=== PATIENT | male | born 1995 | race Asian ===

== ENCOUNTER 2018-11-30 14:14 | Inpatient (IN) ==
--- NOTE | 2018-11-30 14:47 | Emergency Department Note ---
Entered by Yessi Sutton acting as a scribe for Brandt Del Rosario MD History of Present Illness General Chief complaint: Mental Health Evaluation Stated complaint: LAC TO L ARM Time Seen by Provider: 11/30/18 14:28 History of Present Illness Maximum Pain Intensity: 4 Past Med/Surg History Social History Feels Safe at Home: Yes Smoking Status: Current every day smoker Physical Exam Vital Signs Vital Signs - 24 hr 11/30/18 14:23 Temperature 99.1 F Temperature Source Oral Sepsis Recent Fever Within 48 Hours No Sepsis New/Unexplained Change in Mental Status No Sepsis Action Taken by Nursing No Action Required Pulse Rate 72 Respiratory Rate 18 Respiratory Effort / Characteristics Non-Labored Spontaneous Respiratory Depth Normal Blood Pressure 134/85 Blood Pressure Mean 101 Pulse Oximetry 100 Oxygen Delivery Method Room Air Discharge Plan Visit Data Chief Complaint: Mental Health Evaluation Stated Complaint: LAC TO L ARM ED Provider: Brandt Del Rosario
[2018-11-30 15:10] LABS: Appearance Urine Clear (Clear); Bilirubin Urine Negative (Negative); Blood Urine Negative (Negative); Color Urine Yellow; Glucose Urine UA Negative (Negative); Ketones Urine Negative (Negative); Leukocyte Esterase Urine Negative (Negative); Nitrite Urine Negative (Negative); Protein Urine Negative (Negative); Specific Gravity Urine 1.019 (1.000-1.030); Urobilinogen Urine Negative (Negative); pH Urine 5.5 (4.5-7.5)
[2018-11-30 15:33] LABS: Basophils # (auto) 0.05 K/uL (0-0.2); Basophils % (auto) 0.7 %; Eosinophils # (auto) 0.07 K/uL (0-0.5); Hematocrit (blood only) 43.9 % (42-52); Hemoglobin 15.4 g/dL (14.0-18.0); Immature Granulocytes # (auto) 0.01 K/uL (0.00-0.02); Immature Granulocytes % (auto) 0.1 %; Lymphocytes # (auto) 1.83 K/uL (1.2-3.4); Lymphocytes % (auto) 26.3 %; Mean Corpuscular Hemoglobin 31.2 pg (25-34); Mean Corpuscular Hgb Conc 35.1 g/dL (32-36); Mean Platelet Volume 10.5 fL (7.4-10.4); Monocytes # (auto) 0.34 K/uL (0.11-0.59); Monocytes % (auto) 4.9 %; Neutrophils # (auto) 4.65 K/uL (1.4-6.5); Platelet Count 240 K/uL (130-400); RDW Coefficient of Variation 12.9 % (11.5-14.5); RDW Standard Deviation 41.6 fL (36.4-46.3); Red Blood Count 4.93 M/uL (4.7-6.1); White Blood Count 6.95 K/uL (4.8-10.8)
[2018-11-30 15:55] LABS: Amphetamines+Metham, Urine Neg (Neg); Barbiturates, Urine Neg (Neg); Benzodiazepine, Urine Neg (Neg); Cocaine, Urine Neg (Neg); MDMA (Ecstacy), Urine Neg (Neg); Methadone, Urine Neg (Neg); Opiate, Urine Neg (Neg); Phencyclidine, Urine Neg (Neg)
[2018-11-30 16:14] LABS: Albumin Level 4.5 gm/dl (3.4-5.0); BUN Creatinine Ratio 15.3 (10-20); Calcium 8.7 mg/dl (8.5-10.1); Creatinine Clr Calc Pharmacy 134.4 ml/min; Est GFR (Non-African American) 121.7; Potassium 3.8 mmol/L (3.5-5.1)
[2018-11-30 16:25] LABS: Albumin Globulin Ratio 1.4 (0.9-2); Bilirubin,Total 0.8 mg/dl (0.2-1); Globulin 3.3 gm/dl (2.5-4.0); Thyroid Stimulating Hormone 3.19 uIu/ml (0.300-4.500); Total Protein 7.8 gm/dl (6.4-8.2)
[2018-11-30 16:32] LABS: Acetaminophen < 2 ug/ml (10-30); Salicylate < 1.7 mg/dl (2.8-20)
[2018-11-30] MEDS ORDERED: NICOTINE 21 MG/24 HR TDSY TD STA (17:08)
[2018-11-30] MEDS ORDERED: XYLOCAINE 1%/SOD BICARB 20 ML VIAL ONE (18:35)
[2018-11-30] MEDS ORDERED: LIDO/EPINEPHRINE/SOD BICARB 20 ML VIAL ONE (18:38)
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
[2018-11-30] MEDS ORDERED: MAGNESIUM HYDROXIDE SUSP 30 ML UDC PO PRN (19:34)
[2018-11-30] MEDS ORDERED: BISMUTH SUBSALICYLATE PER ML OMNICELL CHARGE PO PRN (19:34)
[2018-11-30] MEDS ORDERED: SODIUM CHLORIDE 0.65% NA SOLN 45 ML (OCEAN) PRN (19:34)
[2018-11-30] MEDS ORDERED: ACETAMINOPHEN 325 MG TAB PO PRN (19:34)
[2018-11-30] MEDS ORDERED: ALUMINUM/MAGNESIUM SUSP 30 ML UDC PO PRN (19:34)
[2018-11-30] MEDS ORDERED: NICOTINE 21 MG/24 HR TDSY TD SCH (22:00)
[2018-12-01] MEDS: NICOTINE 21 MG/24 HR TDSY TD SCH (09:40)
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
[2018-12-01] MEDS: ESCITALOPRAM OXALATE 10 MG TAB PO SCH (15:24)
[2018-12-02] MEDS: ESCITALOPRAM OXALATE 10 MG TAB PO SCH (08:59)
[2018-12-02] MEDS: NICOTINE 21 MG/24 HR TDSY TD SCH (09:02)
--- NOTE | 2018-12-02 16:43 | Psychiatric Progress Note ---
Date of Service December 02, 2018 Impression / Recommendations Impression 23-year-old male with history of disordered eating, self-reported history of body dysmorphia, depression, and anxiety. He has demonstrated impulse dyscontrol when emotionally overwhelmed utilizing maladaptive coping strategies of binging and superficial cutting to cope and likely also to punish himself and his parents for his unhappiness. At a basic level he wants to be loved and reassured. He demonstrates fair insight but a great deal of negative cognitive distortions. He would likely benefit from a serotonin based antidepressant for mood, anxiety, and impulse dyscontrol. He would also likely benefit from a stable relationship with a therapist. (1) Depression: 12/01/2018 -Patient admitted on voluntary status to behavioral health unit. He will be maintained on suicide precautions. He will participate in unit programming as appropriate -Patient denying suicidal ideation at time of admission -He will start Lexapro 10 mg p.o. daily following discussion of risks, benefits, and alternative treatment options 12/02/2018 -Patient doing well on the unit with improving mood and hopefulness. In absence of ongoing suicidal ideation, can consider discharge Monday if clinically appropriate at that time -Prior to discharge patient to fill out medical assistance application as he is without health insurance and expressing concern about potential cost associated with hospitalization -Tolerating Lexapro well so far. This agent should be affordable for him in absence of insurance -Patient requested sedative hypnotic trial to help with sleep pattern maintenance. He has taken likely several different benzodiazepine and novel benzodiazepine agents in the past however, after discussion of risks associated with those types of medicines including habituation, he was amenable to a trazodone trial and will start 25 mg p.o. nightly tonight as trial. Common risks and benefits reviewed including risk of priapism and potential but unlikely drug drug interaction with Lexapro -Patient was encouraged to follow through with plans to have a family meeting via phone with his mother and sister prior to discharge (2) Laceration of left upper extremity: 12/01/2018 -4 cm laceration to left forearm sutured in ER 12/02/2018 -Bandage warm and dry -Requested nursing look into need/timing for suture removal (3) Generalized anxiety disorder: 12/01/2018 -Long-standing excessive worry with panic-like symptoms not rising to the level of panic attacks -Start Lexapro trial as above -Cognitive behavioral therapy for alternative coping strategies will be important 12/02/18 -continue lexapro as above (4) Eating disorder, unspecified: 12/01/2018 -Patient reports a history of BDD, preoccupation with weight, self-induced vomiting, and caloric restriction. Unhealthy relationship with food long- standing and possibly explainable in part by his history of being bullied for his body habitus as a child when he was already feeling vulnerable at home, while remaining a source of guilty pleasures and something that he can control -Moderation of diet and avoiding unhealthy compensatory strategies will be encouraged 12/02/18 - reviewed role of CBT and outpatient therapy advised (5) Nicotine dependence: 12/01/2018 -Brief smoking cessation counseling provided exceeded 5 minutes. Long-term risks and strategies for smoking cessation reviewed. Patient was accepting of information. Inventory Assets Strengths: Help seeking, able to introspect Needs: Pharmacotherapy, outpatient supports Risk Factors Assessment Male: Yes : No Do You Have Access To A Gun?: No Health Problems: No Mental Health Diagnoses: Yes Substance Use Disorders: Yes Family History of Suicide: No Previous Psychiatric Hospitalization: No Hopelessness: No Smoker: Yes Protective Factors Assessment : No Responsible for Young Children: No Employed: Yes ("I work on campus") Interval History Chief Complaint "A lot better" Review of Systems Notes Denies constitutional symptoms. Denies pain. Denies GI symptoms. Sleep Information Total Hours of Sleep: 5 Meal Information Percent Meal Consumed - Breakfast: 100 Percent Meal Consumed - Lunch: 100 Percent Meal Consumed - Dinner: 90 Subjective Subjective Patient was seen & assessed and interval progress reviewed with treatment team. Patient appears to be doing well on the unit. Reviewed 72-hour notice will be up at 2049 on Monday. Patient denying suicidal ideation. We plan to pursue medical assistance application hopefully to help cover cost of hospitalization prior to his discharge. Working to schedule family meeting via phone with sister and mother. On interview patient describes feeling "a lot better" today. He expresses gratitude for the help he is receiving. He believes some of his recent lifestyle choices have been contributing to his depression including irregular sleep patterns and isolation. We reviewed, in setting of a history of depression, the importance of regular sleep overnight and considered means to remain active during the day. He appreciates the benefit from the structure of the hospital environment. He describes his mood this morning is "calm." Feeling more hopeful, more energetic, more interested. Denies active self- injurious impulses or suicidal ideation. Physical Exam Psychiatric Orientation: alert, oriented x 3 and cooperative Apperance: appropriately dressed, appropriately groomed and appeared stated age Eye Contact: good eye contact Motor Behavior: steady gait and station Speech: normal rate/rhythm/volume of speech Affect: euthymic affect Calm Thought Process: goal directed thought process and clear/coherent thought process Thought Content: no delusions and no hopelessness Suicidal Thoughts: denies suicidal thoughts, denies suicidal plan and denies suicidal intent Homicidal Thoughts: denies homicidal thoughts Hallucinations: no auditory hallucinations and no visual hallucinations Cognition: recent memory grossly intact and attention grossly intact Estimated Intelligence: average estimated intelligence Insight: + fair insight Judgement: + fair judgement Vital Signs (Past 24 Hours) Last Vital Signs Temp 36.4 C L 12/02/18 06:53 Pulse 69 12/02/18 06:54 Resp 18 12/02/18 06:53 BP 107/66 12/02/18 06:54 Pulse Ox 98 11/30/18 20:00 Results & Data Current Inpatient Medications Current Inpatient Medications: Current Inpatient Medications Acetaminophen (Tylenol) 650 mg PO Q4H PRN PRN Reason: Headache or Minor Fever Stop: 12/30/18 19:33 Al Hydrox/Mg Hydrox/Simethicone (Maalox) 30 ml PO Q4H PRN PRN Reason: GI Upset Stop: 12/30/18 19:33 Bismuth Subsalicylate (Kaopectate) 15 ml PO PRN PRN PRN Reason: Loose Stool Stop: 12/30/18 19:33 Escitalopram Oxalate (Lexapro Tab) 10 mg PO QAM TAN Stop: 12/31/18 14:29 Last Admin: 12/02/18 08:59 Dose: 10 mg Documented by: Hydroxyzine HCl (Vistaril) 50 mg PO HSZ PRN PRN Reason: Insomnia Stop: 12/30/18 19:33 Hydroxyzine HCl (Vistaril) 25 mg PO Q4H PRN PRN Reason: Anxiety Stop: 12/30/18 19:33 Magnesium Hydroxide (Milk Of Magnesia) 30 ml PO DAILY PRN PRN Reason: Constipation Stop: 12/30/18 19:33 Miscellaneous (Remove Nicoderm Patch) 1 ea N/A HS TAN Stop: 12/30/18 20:59 Last Admin: 12/01/18 22:30 Dose: 1 ea Documented by: Nicotine (Nicoderm Cq) 21 mg TD QAM TAN Stop: 12/31/18 08:59 Last Admin: 12/02/18 09:02 Dose: 21 mg Documented by: Sodium Chloride ([place] Nasal) 1 - 2 sprays NA PRN PRN PRN Reason: Nasal Dryness/Congestion Stop: 12/30/18 19:33 Mental Health & Subst Abuse Tx Psychiatrist Name of Psychiatrist: JOHNNY Psychiatrist's Psychiatric Appointment Comment: [facility] Therapist Name of Therapist: [facility] Therapist's Therapy Appointment Comment: [facility] Surgical Processor Name of Surgical Processor: [facility] Phone Number for Surgical Processor: [phone] Case Management Appointment Comment: [address] [place] [address] Post Discharge Appointments Primary Care Physician Name Of Family Doctor: [facility] Primary Care Time of Appointment with PCP: Follow up as needed Provider Appointment Comment: [facility] Contact Information Discharge Discharge Address: [address] [place] [address] Willy, [facility], [place] [address] (1) Depression Depression Type: unspecified Qualified Code(s): F32.9 - Major depressive disorder, single episode, unspecified (2) Laceration of left upper extremity Encounter type: initial encounter Qualified Code(s): S41.112A - Laceration without foreign body of left upper arm, initial encounter
[2018-12-02] MEDS ORDERED: TRAZODONE HCL 50 MG TAB PO SCH (22:00)
[2018-12-03] MEDS: ESCITALOPRAM OXALATE 10 MG TAB PO SCH (08:30)
[2018-12-03] MEDS: NICOTINE 21 MG/24 HR TDSY TD SCH (08:30)
--- NOTE | 2018-12-03 11:08 | Discharge Summary ---
Date of Service December 03, 2018 History of Present Illness This patient, who goes by Obey, was admitted through the hospital ER last evening where he presented with self inflicted cut to his left arm requiring 4 sutures. In the ER he reported that he last cut himself several weeks ago. He reported feeling more sad and depressed recently but denied thoughts of hurting himself or anyone else or symptoms of psychosis. He noted a history of similar symptoms 2 years ago when he was treated for body dysmorphic disorder with counseling. Medical workup in the ER was otherwise benign and he was cleared for [facility] admission for further evaluation and treatment. On interview this morning, Obey describes a difficult childhood. His mother was somewhat unpredictable and emotional. He remembers her yelling and screaming, at times destructive. He recalls one instance of crying seated in the back of her car wh en he believed she was going to drive the car into water. He seems to perceive that his family is more focused on his accomplishments than his happiness. He has a girlfriend whom he talks to on the phone who lives in [facility] and is a source of some support. He also likes his roommates and reports that he does have some friends in town. He is able to appreciate a history of trying to prove to others how bad he feels and an attempt to recruit sympathy, attention, and support, however he acknowledges that his family typically responds negatively. This includes the cutting that he has been doing in several episodes in recent years. He always cuts superficially on his arms and denies that his intention has ever been to kill himself while cutting. He states that he does this to show his family and also likely to punish them. When he cut himself most recently this was possibly an attempt to get back at his girlfriend for not being available to him when he needed her. There have been times when he felt that the cutting was pleasurable briefly however at present he perceives that he is averse to be painful stimulus and would like to stop. Today he denies passive or active wish. No plan or intention for suicide or harm to anyone else endorsed. He describes a lot of negative thinking, tends to feel guilty, and worries excessively. Long-standing tendency to worry with o ccasional mild panic symptoms but not regular panic attacks. He denies symptoms that would be consistent with OCD. He denies psychosis or symptoms of simón. He acknowledges long-standing low mood states that tend to be persistent for long periods of time. Believes he has been treated with Wellbutrin with some success for mood in the past but admits he took more than prescribed hoping for improved effect but it made him shaky and he stopped that last in April 2018. He describes tearfulness, increased time spent in bed, decreased interest, motivation, and energy. He describes a mental image of himself as a child appearing vulnerable which makes him sad. He notes a history of binging to the point of feeling sick. "Food makes me feel safe." He has a history of chewing and spitting food and also a history of self-induced emesis 2 years ago due to concern for weight gain. He does not weigh himself at home but does sometimes restrict calories to offset binges. He denies abuse of laxatives or over exercising. He endorses a fear of gaining weight and notes a history of being bullied in school for being overweight as a younger child. He expresses concern about the cost of his hospitalization as he does not have medical insurance. Physical Exam Psychiatric Orientation: alert, oriented x 3 and cooperative Apperance: appropriately dressed, appropriately groomed and appeared stated age Eye Contact: good eye contact Motor Behavior: steady gait and station and + psychomotor agitation (bouncing legs up and down throughout assessment) Speech: normal rate/rhythm/volume of speech Affect: euthymic affect and mood congruent with affect Mood: no depressed mood and no anxious mood "much better" Thought Process: goal directed thought process and linear/logical thought process Thought Content: reality based without delusions Suicidal Thoughts: denies suicidal thoughts Homicidal Thoughts: denies homicidal thoughts Hallucinations: no auditory hallucinations Cognition: recent memory grossly intact, attention grossly intact and language grossly intact Insight: + fair insight Judgement: + fair judgement Vital Signs (Past 24 Hours) Last Vital Signs Temp 36.4 C L 12/03/18 09:35 Pulse 56 L 12/03/18 09:35 Resp 18 12/03/18 09:35 BP 102/65 12/03/18 09:35 Pulse Ox 98 12/03/18 09:35 Principal Diagnosis Major depressive episode, single episode, severe without psychsosis Psychiatric Data The patient was hospitalized for 3 days. He had sutures placed in the ER for self inflicted laceration as above. He was engaged in treatment, participated in groups and therapy, and interacted appropriately with peers. He was eating and sleeping well, and had a meeting with his parents and the long term care social worker. They discussed his goals, specifically to return to school and graduate next semester, and the treatment recommendations, including outpatient treatment. They also discussed ways to use healthier coping skills, the importance of maintaining a regular sleep schedule, cutting back on nicotine, and eating a nutritious diet. He was referred to [facility] for outpatient therapy and psychiatric care, as he does not have health insurance and stated he could not afford to pay out of pocket for treatment. He was started on antidepressant medication, which he tolerated well. Day of Discharge Assessment Staff report he has been attending groups and therapy, with good participation, reporting improved mood, which he rated a 9 out of 10. He reported feeling hopeful for the future, and felt that the meeting with his parents went well. Parents were supportive of him getting outpatient treatment and continuing in school. He has been interacting with his peers, and observed laughing at jokes with brighter affect. On my assessment, the patient reports he is "doing better, more calm." He states it has been helpful to stay on a schedule with going to bed and getting up at the same time, and he feels more rested. He has been able to laugh at and enjoy jokes which has boosted his mood. Notes he was isolating at home more prior to hospitalization because of his depressed mood, and it has helped to be around other people here. He is hoping to get therapy and possibly groups at [facility]. He reports good appetite here and says his family meeting went well, and parents support him finishing school and getting treatm ent here in the interim. He denies suicidal thoughts, thoughts of self injury, and side effects to medications. States he is "sort of afraid to cut myself again, will try to prevent to myself from doing that." He is able to review to review his safety plan and reports good support from friends, family, girlfriend, and roommates. Transition of Care Transition Of Care Record: was reviewed with the patient Advance Directives Advance Directives Information Provided: Yes Advance Directives: No Mental Health Advance Directive: No Advance Directives on File: No Living Will: No Power of History Instructor: No Advance Directives Reason:: Declines as Mental Health Visit. Risk Factors Assessment Risk factors were mitigated by admission to the inpatient unit, starting medication to target mood symptoms, referring him for outpatient treatment, involving him in groups and therapy, working on healthy coping skills and a discharge safety plan, family meeting with his parents, and psychoeducation about the risks of ongoing substance use and recommendations for abstinence. He has demonstrated improvement in mood, is denying thoughts of suicide and thoughts to harm himself, and is engaged and compliant with treatment, attending and participating in groups and therapy, and stating willingness for outpatient treatment. He is performing ADLs independently, eating and sleeping well. He is submitted a 72-hour notice which expires this evening, and as he is no longer at acute risk of harm to himself, can be discharged and managed as an outpatient at this time. He does not have significant risk factors for harm to others. Male: Yes : No Do You Have Access To A Gun?: No Health Problems: No Mental Health Diagnoses: Yes Substance Use Disorders: Yes Previous Attempt: Yes Family History of Suicide: No Previous Psychiatric Hospitalization: No Hopelessness: No Smoker: Yes Protective Factors Assessment : No Responsible for Young Children: No Employed: Yes ("I work on campus") Stable Relationships: Yes Supportive Family: Yes Good Rapport with Provider: Yes Tobacco Cessation at Discharge Tobacco Cessation Medication Prescribed at Discharge: Offered & Pt Refused Total Time Total Time Spent: Greater Than 30 Minutes Total Time Includes: Examination of the patient, Discharge Planning and Medication Reconciliation Discharge Data Lab Results 11/30/18 11/30/18 11/30/18 02:55 02:55 15:07 WBC 6.95 RBC 4.93 Hgb 15.4 Hct 43.9 MCV 89.0 MCH 31.2 MCHC 35.1 RDW Std Deviation 41.6 RDW Coeff of Britton 12.9 Plt Count 240 MPV 10.5 H Immature Gran % (Auto) 0.1 Neut % (Auto) 67.0 Lymph % (Auto) 26.3 [place] % (Auto) 4.9 Eos % (Auto) 1.0 Baso % (Auto) 0.7 Immature Gran # (Auto) 0.01 Neut # (Auto) 4.65 Lymph # (Auto) 1.83 [place] # (Auto) 0.34 Eos # (Auto) 0.07 Baso # (Auto) 0.05 Sodium Potassium Chloride Carbon Dioxide Anion Gap BUN Creatinine Est Cr Clr Drug Dosing Est GFR ( Amer) Est GFR (Non-Af Amer) BUN/Creatinine Ratio Glucose Calcium Total Bilirubin AST ALT Alkaline Phosphatase Total Protein Albumin Globulin Albumin/Globulin Ratio TSH Urine Color Yellow Urine Appearance Clear Urine pH 5.5 Ur Specific [place] 1.019 Urine Protein Negative Urine Glucose (UA) Negative Urine Ketones Negative Urine Blood Negative Urine Nitrite Negative Urine Bilirubin Negative Urine Urobilinogen Negative Ur Leukocyte Esterase Negative Salicylates Urine Opiates Screen Neg Ur Methadone, Qual Neg Acetaminophen Urine Barbiturates Neg Ur Phencyclidine (PCP) Neg U Amphetamin/Meth Scrn Neg MDMA (Ecstasy) Screen Neg U Benzodiazepines Scrn Neg Ur Cocaine Metabolite Neg U Marijuana (THC) Screen Neg Ethyl Alcohol mg/dL 11/30/18 11/30/18 11/30/18 15:07 15:07 15:07 WBC RBC Hgb Hct MCV MCH MCHC RDW Std Deviation RDW Coeff of [place] Plt Count MPV Immature Gran % (Auto) Neut % (Auto) Lymph % (Auto) [place] % (Auto) Eos % (Auto) Baso % (Auto) Immature Gran # (Auto) Neut # (Auto) Lymph # (Auto) [place] # (Auto) Eos # (Auto) Baso # (Auto) Sodium 139 Potassium 3.8 Chloride 104 Carbon Dioxide 28 Anion Gap 7.0 BUN 14 Creatinine 0.90 Est Cr Clr Drug Dosing 134.4 Est GFR ( Amer) 141.0 Est GFR (Non-Af Amer) 121.7 BUN/Creatinine Ratio 15.3 Glucose 87 Calcium 8.7 Total Bilirubin 0.8 AST 13 L ALT 18 Alkaline Phosphatase 66 Total Protein 7.8 Albumin 4.5 Globulin 3.3 Albumin/Globulin Ratio 1.4 TSH 3.190 Urine Color Urine Appearance Urine pH Ur Specific [place] Urine Protein Urine Glucose (UA) Urine Ketones Urine Blood Urine Nitrite Urine Bilirubin Urine Urobilinogen Ur Leukocyte Esterase Salicylates < 1.7 L Urine Opiates Screen Ur Methadone, Qual Acetaminophen < 2 L Urine Barbiturates Ur Phencyclidine (PCP) U Amphetamin/Meth Scrn MDMA (Ecstasy) Screen U Benzodiazepines Scrn Ur Cocaine Metabolite U Marijuana (THC) Screen Ethyl Alcohol mg/dL < 3.0 Hospital Course (1) Depression: 12/01/2018 -Patient admitted on voluntary status to behavioral health unit. He will be maintained on suicide precautions. He will participate in unit programming as appropriate -Patient denying suicidal ideation at time of admission -He will start Lexapro 10 mg p.o. daily following discussion of risks, benefits, and alternative treatment options 12/02/2018 -Patient doing well on the unit with improving mood and hopefulness. In absence of ongoing suicidal ideation, can consider discharge Monday if clinically appropriate at that time -Prior to discharge patient to fill out medical assistance application as he is without health insurance and expressing concern about potential cost associated with hospitalization -Tolerating Lexapro well so far. This agent should be affordable for him in absence of insurance -Patient requested sedative hypnotic trial to help with sleep pattern maintenance. He has taken likely several different benzodiazepine and novel benzodiazepine agents in the past however, after discussion of risks associated with those types of medicines including habituation, he was amenable to a trazodone trial and will start 25 mg p.o. nightly tonight as trial. Common risks and benefits reviewed including risk of priapism and potential but unlikely drug drug interaction with Lexapro -Patient was encouraged to follow through with plans to have a family meeting via phone with his mother and sister prior to discharge 12/03 -Patient tolerating escitalopram well, reporting improved mood, consistently denying suicidal thoughts and thoughts to harm himself, and requesting discharge. He is submitted a 72-hour notice which expires this evening. He had a family meeting with his parents yesterday which she says went well. We are referring him to [facility] for outpatient therapy and psychiatric care. (2) Laceration of left upper extremity: 12/01/2018 -4 cm laceration to left forearm sutured in ER 12/02/2018 -Bandage warm and dry -Requested nursing look into need/timing for suture removal 12/03 -Suture removal after 1 week, can go to [facility] or the ER. Patient voiced understanding. (3) Generalized anxiety disorder: 12/01/2018 -Long-standing excessive worry with panic-like symptoms not rising to the level of panic attacks -Start Lexapro trial as above -Cognitive behavioral therapy for alternative coping strategies will be important 12/02/18 -continue lexapro as above (4) Eating disorder, unspecified: 12/01/2018 -Patient reports a history of BDD, preoccupation with weight, self-induced vomiting, and caloric restriction. Unhealthy relationship with food long- standing and possibly explainable in part by his history of being bullied for his body habitus as a child when he was already feeling vulnerable at home, while remaining a source of guilty pleasures and something that he can control -Moderation of diet and avoiding unhealthy compensatory strategies will be encouraged 12/02/18 - reviewed role of CBT and outpatient therapy advised (5) Nicotine dependence: 12/01/2018 -Brief smoking cessation counseling provided exceeded 5 minutes. Long-term risks and strategies for smoking cessation reviewed. Patient was accepting of information. Mental Health & Subst Abuse Tx Psychiatrist Name of Psychiatrist: [facility] Psychiatrist's Psychiatric Appointment Comment: [facility] Therapist Name of Therapist: [facility] Therapist's Therapy Appointment Comment: [facility] Revenue Enforcement Collection Agent Name of Revenue Enforcement Collection Agent: [employer] Phone Number for Revenue Enforcement Collection Agent: [phone] Case Management Appointment Comment: [address] [place] [address] Post Discharge Appointments Primary Care Physician Name Of Family Doctor: [facility] Primary Care Time of Appointment with PCP: Follow up as needed Provider Appointment Comment: [facility] Smoking Cessation Counseling Tobacco Cessation Medication Prescribed at Discharge: Offered & Pt Refused Contact Information Discharge Discharge [address] [address], [place] [address] Discharge Plan Discharge Items Patient Disposition: Home - Self-Care Reason For Visit: DEPRESSION Discharge Diagnosis: Depression Activity: Per Instructions section Non-emergency contact: Primary Care Provider, Psychiatrist and Therapist Call non-emergency contact if: you have any medication questions and your symptoms worsen Follow-up/Referrals: [facility] [Primary Care Provider] - Diet: Regular Addtl Attending Provider Instructions: SPECIAL CARE INSTRUCTIONS: 1. Follow through with your scheduled aftercare appointments. If unable to keep an appointment, please call to reschedule. - You will need to have your sutures removed after 1 week - so 2018. You can go to [facility] for this. 2. Take your medication only as prescribed. Medication should not be changed or stopped without the approval of your doctor. In the event of worsening symptoms or concerns about side effects, contact your doctor immediately. 3. Utilize new healthy coping skills, anger management skills, and stress management skills learned during your hospitalization. Journal feelings and process them with a support person. Identify stressors or situations that may result in relapse, deterioration or inappropriate behaviors and develop a plan to deal with those issues. 4. If your coping skills are ineffective and you are in crisis, contact your outpatient providers for direction. If unable to reach your providers, please call the CAN HELP LINE AT or go to the closest Emergency Room. 5. Avoid alcohol and un-prescribed drugs. 6. You have been provided with the Mental Health Advance Directives Pamphlet for your review. AFTERCARE APPOINTMENTS: * Please call your insurance company prior to your scheduled appointment to confirm your aftercare providers are covered. Take your insurance information to your appointments. WHO TO CALL AND WHEN: Medical Emergencies: For questions or emergencies related to your hospital stay, please contact the Inpatient Behavioral Health Unit at [phone]. A [address] cleaning equipment operator is on-call 29/08 for the Behavioral Health Unit for emergencies At any time you feel your situation is an emergency, you may also call 911 immediately. Your Doctors Instructions noted above were prepared by provider Lien Matute MD. Pending Studies at Discharge: No Stand-Alone Forms: My [facility] [email or web address], Smoking Cessation, Suicide Prevention Resources Medications and DC Order Prescriptions: New escitalopram oxalate 10 mg Tablet 10 mg PO QAM Qty: 30 RF: 0 No Action No Known Home Medications RF: 0 Discharge Orders: Discharge Order (Routine); Ordered 12/03/18 Ordered By: Lien Matute Admission Data Admit Date/Time: 11/30/18 19:34 Attending Provider: Piyush Skinner Admit Provider: Piyush Skinner Primary Care Provider: [facility] Other Interventions: Discharge Summary Assessment (RN) Last Done: 12/03/18 09:35 PSY Interdisciplinary Discharge Planning Last Done: 12/02/18 08:21 Coding Level of Care Code 79784 D/C day mgmt > 30 min Diagnoses Depression F32.9 Depression Type: unspecified Laceration of left upper extremity S41.112A Encounter type: initial encounter Generalized anxiety disorder F41.1 Eating disorder, unspecified F50.9 Nicotine dependence F17.200
== END 2018-12-03 13:25 | disposition home or self-care (01) | DRG 881 ==
LOC: ED 14:14 → 3S 19:34